=== PATIENT | female | born 1965 | race African-American/Black ===

== ENCOUNTER 2021-02-15 06:45 | Day surgery (SDC) | payer OTHER ==
[~2021-02-15] VITALS: Ht 162.6 cm; Wt 81.6 kg
[2021-02-15] MEDS ORDERED: MIDAZOLAM 5 MG/5 ML VIAL ONE (08:11)
[2021-02-15] MEDS ORDERED: diphenhydrAMINE 50 MG/ML VIAL ONE (08:11)
[2021-02-15] MEDS ORDERED: fentaNYL citrate 0.05 MG/ML VIAL ONE (08:11)
[2021-02-15] MEDS ORDERED: fentaNYL citrate 0.05 MG/ML VIAL IVP ONE (13:45)
[2021-02-15] MEDS ORDERED: MIDAZOLAM 2 MG/2 ML VIAL IVP ONE (13:45)
== END 2021-02-15 09:05 | disposition home or self-care (01) ==
LOC: MMU 06:45 → MOR 06:45
PROVIDERS: ATTEND Internal Medicine Gastroenterology
DX: K21.9 Gastro-esophageal reflux disease without esophagitis (principal); R10.13 Epigastric pain; I10 Essential (primary) hypertension; Z90.710 Acquired absence of both cervix and uterus; Z20.822 Contact with and (suspected) exposure to COVID-19; Z79.899 Other long term (current) drug therapy
CPT/HCPCS: 43239; 87426; J2250; J3010; J1200

== ENCOUNTER 2021-08-23 06:04 | Day surgery (SDC) | payer OTHER ==
[~2021-08-23] VITALS: Ht 167.6 cm; Wt 83.0 kg
[2021-08-23] MEDS ORDERED: fentaNYL citrate 0.05 MG/ML VIAL ONE (07:18)
[2021-08-23] MEDS ORDERED: diphenhydrAMINE 50 MG/ML VIAL ONE (07:18)
[2021-08-23] MEDS ORDERED: LIDOCAINE 2% 100 MG/5 ML UJET TP ONE (07:19)
[2021-08-23] MEDS ORDERED: MIDAZOLAM 2 MG/2 ML VIAL ONE (07:19)
[2021-08-23] MEDS ORDERED: MIDAZOLAM 2 MG/2 ML VIAL IVP ONE (08:15)
[2021-08-23] MEDS ORDERED: fentaNYL citrate 0.05 MG/ML VIAL IVP ONE (08:15)
== END 2021-08-23 08:15 | disposition home or self-care (01) ==
LOC: MDS 06:04 → MMU 06:05 → MDS 08:15
PROVIDERS: ATTEND Internal Medicine Gastroenterology
DX: Z12.11 Encounter for screening for malignant neoplasm of colon (principal); K29.70 Gastritis, unspecified, without bleeding; I10 Essential (primary) hypertension; K21.9 Gastro-esophageal reflux disease without esophagitis; Z98.51 Tubal ligation status; Z79.899 Other long term (current) drug therapy; Z20.822 Contact with and (suspected) exposure to COVID-19
CPT/HCPCS: 45378; 87426; J2250; J3010; J1200